=== PATIENT | male | born 1945 | race Caucasian/White ===

== ENCOUNTER → 2017-05-14 | Day surgery (SDC) | payer MEDICARE ==
[~2017-05-14] MED LIST: LIDOCAINE 1% PF 2 ML VIAL. ID; LIDOCAINE 2% 100 MG/5 ML SYRINGE.; MIDAZOLAM HCL/PF 2 MG/2 ML VIAL. IV; PROPOFOL 60 ML IV; fentaNYL PF VIAL 100 MCG/2 ML VIAL IV
[2017-05-14] MEDS: IV RINGERS,LACTATED 1000ML 1,000 ML IV (11:52)
== END | disposition home or self-care (01) ==
LOC: SURG 11:17
DX: D12.3 Benign neoplasm of transverse colon (principal); K63.5 Polyp of colon; K57.30 Diverticulosis of large intestine without perforation or abscess without bleeding; K64.8 Other hemorrhoids; K44.9 Diaphragmatic hernia without obstruction or gangrene; K29.50 Unspecified chronic gastritis without bleeding; I10 Essential (primary) hypertension; Z83.3 Family history of diabetes mellitus; Z80.3 Family history of malignant neoplasm of breast; Z98.890 Other specified postprocedural states; Z79.899 Other long term (current) drug therapy
CPT/HCPCS: 45385; 88305; J2704

== ENCOUNTER 2018-07-30 08:09 | Outpatient (CLI) | payer MEDICARE ==
[~2018-07-30] VITALS: Ht 172.7 cm; Wt 114.3 kg
[2018-07-30] VITALS (8 sets, daily range): BP systolic 140–160; BP diastolic 76–90
[~2018-07-30 08:09] MED LIST changes: +AMLO5TAB10 PO; +ESOM40CA PO; +FINA5TAB4 PO; -LIDOCAINE 1% PF 2 ML VIAL. ID; -LIDOCAINE 2% 100 MG/5 ML SYRINGE.; +LOSA1TAB25 PO; -MIDAZOLAM HCL/PF 2 MG/2 ML VIAL. IV; +PRAV40TA2 PO; -PROPOFOL 60 ML IV; -fentaNYL PF VIAL 100 MCG/2 ML VIAL IV
[2018-07-30] MEDS ORDERED: FERR325T14 PO (08:26)
[2018-07-30] MEDS ORDERED: LOSA1TAB22 PO (08:26)
[2018-07-30] MEDS ORDERED: MULT1TAB52 PO (08:26)
[2018-07-30] MEDS ORDERED: ASPI81TA50 PO (08:26)
[2018-07-30] MEDS ORDERED: CYAN25002 SL (08:26)
[2018-07-30 08:51] LABS: BASO # 0.1 x10^3/uL (0.0-0.2); BASO % 1 % (0-3); EOS # 0.4 x10^3/uL (0.0-0.7); EOS % 3 % (0-3); HEMATOCRIT 45.1 % (39.0-53.0); HEMOGLOBIN 15.3 g/dL (13.0-17.5); LYMPH # 1.4 x10^3/uL (1.0-4.8); LYMPH % 10 % (24-48); MEAN CORPUSCULAR HEMOGLOBIN 29 pg (25-35); MEAN CORPUSCULAR HGB CONC 34 g/dL (31-37); MEAN CORPUSCULAR VOLUME 85 fL (79-100); MONO # 0.9 x10^3/uL (0.0-1.1); MONO % 7 % (0-9); NEUT # 10.8 x10^3uL (1.8-7.7); NEUT % 79 % (31-73); PLATELET COUNT 577 x10^3/uL (140-400); RED CELL DISTRIBUTION WIDTH 15.5 % (11.5-14.5); WHITE BLOOD COUNT 13.6 x10^3/uL (4.0-11.0)
[2018-07-30 09:00] LABS: PROTHROMBIN TIME PATIENT 14.8 SEC (11.7-14.0)
[2018-07-30] MEDS ORDERED: LIDOCAINE WITH 8.4% SOD BICARB 3 ML DISP.SYRIN. ONE (10:10)
[2018-07-30] MEDS ORDERED: NALOXONE 0.4 MG/ML VIAL. ONE (10:59)
[2018-07-30] MEDS ORDERED: fentaNYL PF VIAL 100 MCG/2 ML VIAL ONE (10:59)
[2018-07-30] MEDS ORDERED: MIDAZOLAM HCL/PF 2 MG/2 ML VIAL. ONE (10:59)
[2018-07-30] MEDS ORDERED: FLUMAZENIL 0.5 MG/5 ML VIAL. IV ONE (10:59)
[2018-07-30] MEDS ORDERED: LIDOCAINE WITH 8.4% SOD BICARB 3 ML DISP.SYRIN. IJ ONE (11:15)
[2018-07-30] MEDS ORDERED: fentaNYL PF VIAL 100 MCG/2 ML VIAL IV ONE (11:15)
[2018-07-30] MEDS ORDERED: MIDAZOLAM HCL/PF 2 MG/2 ML VIAL. IV ONE (11:15)
--- NOTE | 2018-07-30 12:25 | NUR ---
Discharge Note: JACOB WALL Discharge instructions and discharge home medications reviewed with Patient and a copy given. All questions have been answered and understanding verbalized. The following instructions and handouts were given: adult moderate sedation and post care for bone marrow biopsy Discontinued lines and drains: Peripheral IV intact. Patient discharged to Home or Self Care withSpousevia Wheelchair
--- NOTE | 2018-07-30 14:37 | RAD ---
CT-guided bone marrow biopsy. 07/30/2018 2:34 PM Indication: THROMBOCYTOSIS Discussion: The risks and benefits of the procedure, including but not limited to, bleeding and infection were discussed patient. Informed consent was obtained. The patient was brought to the CT scanner and placed in the prone position. A timeout procedure was performed. Integration Aide CT imaging of the pelvis demonstrated left ilium amenable to bone marrow biopsy. The overlying soft tissues were prepped and draped using maximum sterile barrier technique. 1% lidocaine without epinephrine was administered for local anesthesia. Under intermittent CT guidance, an OncControl needle was advanced into the bone marrow of the left iliac crest. 2 Aspirates and 1 core biopsy samples were obtained. Samples were delivered to pathology was present at the time of procedure. The needle was removed and manual pressure held to achieve hemostasis. No immediate complications were identified. The procedure was performed under conscious sedation including continuous cardiopulmonary monitoring via dedicated sedation nurse. Sedation time: 20 minutes Impression: Successful CT-guided bone marrow biopsy of the left iliac crest . PQRS Compliance Statement: One or more of the following individualized dose reduction techniques were utilized for this examination: 1. Automated exposure control 2. Adjustment of the mA and/or kV according to patient size 3. Use of iterative reconstruction technique
--- NOTE | 2018-08-06 09:07 | PATHOLOGY ---
[facility] Accession Number: [id number] . 01 Material submitted: . PART A: bone - BONE MARROW BIOPSY PART B: bone - BONE MARROW CLOT PART C: bone - BONE MARROW APIRATE SLIDES PART D: bone - PERIPHERAL BLOOD SMEAR PART E: bone - BONE MARROW FLOW . 01 Clinical history: . Thrombocytosis . 02 Diagnosis: Peripheral smear: - Moderate thrombocytosis. - Mild neutrophilic leukocytosis. . Bone marrow, aspirate smears, clot section, and core biopsy: - Mild to moderately hypercellular marrow showing panhyperplasia, no significant dyspoiesis, increased large and giant mature megakaryocytes, and decreased iron stores - findings are compatible with a chronic myeloproliferative disorder. See comment. (JPM:alf; 08/04/2018) R/08/06/2018 . 02 Comment: The peripheral smear shows a moderate thrombocytosis with several large platelets, and a mild neutrophilic leukocytosis. The bone marrow is mild to moderately hypercellular and shows panhyperplasia, no significant dyspoiesis, increased megakaryocytes with large and giant mature megakaryocytes, and decreased iron stores. The findings are compatible with a chronic myeloproliferative disorder. 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 The differential diagnosis includes Essential thrombocythemia and an early prodromal phase of Polycythemia vera. Diagnostic criteria of Polcythemia vera are not met despite an apparent trial of iron therapy. 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 Correlate clinically. (JPM:alf; 08/04/2018) . Special stains performed: Retic stain on A1 Iron stain on B1 Aspirate smear C1 . 02 Electronically signed: . Nathanael Loza MD, Pathologist NPI- [id number] . 01 Gross description: . A. Received in formalin labeled "Harry Hester, bone marrow," and additionally labeled on the requisition as "BM BX," are 2 needle cores of deluna bone measuring 0.6 and 1.0 cm in length and 0.2 cm each in diameter. The specimen is submitted entirely in cassette A1, following decalcification. . B. Received in formalin labeled "Harry Hester, BM ASP-clot," is an aggregate of dark deluna blood clot measuring 0.9 x 0.4 x 0.1 cm. The specimen is filtered and entirely submitted in cassette B1. (TSD; 07/30/2018) TOB/TOB . 02 Microscopic: . Laboratory Data: The WBC count is 13.6 K/CMM, and the automated WBC differential reveals 79% neutrophils, 10% lymphs, 7% monos, 3% eos, and 1% baso. The RBC count is 5.30 M/CMM, hemoglobin 45.1%, MCV 85 FL, MCH 29 PG, MCHC 34 G/DL, and the RDW is 15.5%. The platelet count is 577 K/CMM. Additional laboratory studies are obtained from Dr. Membreno' office. The serum iron is 76 UG/DL, TIBC 374 UG/DL, saturation 20%, and ferritin 115 NG/ML. Erythropoietin level is 13.2 MU/ML. The vitamin B12 is 2305 PG/ML. 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 FISH analysis performed on peripheral blood is negative for detection of BCR-ABL1 rearrangement. . Peripheral Smear: The peripheral smear is reviewed. The WBC count is mildly increased. There is a mild absolute neutrophilia. The WBC differential reveals a predominance of segmented neutrophils, with small populations of lymphocytes and monocytes and a few eosinophils and occasional basophils noted. Neutrophils do not show dysplastic changes. There is an occasional circulating myelocyte. There is no significant left shift with myelocyte bulge. There are no circulating blasts. There is no leukoerythroblastic reaction. The lymphocyte population consists predominantly of small lymphocytes. Red blood cells predominantly appear normochromic and normocytic. Red blood cells show slight anisocytosis and no significant poikilocytosis. Platelets are moderately increased. Platelets predominantly appear normal in morphology, although several large platelets and a rare giant platelet are noted. . Aspirate Smears: Two Ortiz's-stained and one iron-stained aspirate smears are examined. The smears contain multiple cellular marrow particles which are obviously hypercellular for age. The M/E ratio is approximately 2:1. Erythroid maturation appears normoblastic. There are no megaloblastic or overt dysplastic changes. Granulopoiesis qualitatively appears normal. There is no significant left shift or dysplastic changes. There is no increase of blasts. Megakaryocytes are increased and are focally clustered. The megakaryocytes are of variable ploidy. There are large and occasional giant megakaryocytes having abundant mature cytoplasm and deeply lobulated and hypersegmented nuclei. There are focal platelet clumps within the smear as well. Plasma cells are not increased. There is no increase of lymphocytes. There are no cells foreign to the marrow. The iron stain shows focally present but overall decreased iron stores. There are no ringed sideroblasts. . Bone Marrow Biopsy and Clot Section: Sections of the bone marrow biopsy reveal a segment of bone marrow which ranges between 50% and 70-80% cellular. The clot section contains multiple marrow particles which range between 60% and 80% cellular. There appears to be a panhyperplasia. There is a good admixture of erythroid and granulocytic precursors, which are present in varying stages of maturation. There does not appear to be a significant neutrophilic left shift. There is no increase of blasts. Megakaryocytes are increased and are focally loosely clustered. The megakaryocytes are of variable ploidy. There are large and giant megakaryocytes present having abundant mature cytoplasm and deeply lobulated and hypersegmented nuclei. There is no increase of plasma cells. There are no abnormal lymphoid aggregates, granulomas, or cells foreign to the marrow. A reticulin stain obtained on the biopsy shows a patchy mild increase of reticulin fibers. An iron stain obtained on the clot section show nearly absent iron stores. No ringed sideroblasts are identified. . Special Studies: Bone marrow submitted for flow cytometric analysis has a viability of 99.3%. Granulocytes comprise 88.0% of total cells and show phenotypic evidence of maturation. Monocytes comprise 1.6% of total cells. CD45 dim, CD34 positive cells comprise 0.6% of total cells. Plasma cells are not detected. Lymphocytes comprise 7.9% of total cells. T-cells comprise 87% of lymphoid cells and show a CD4/CD8 ratio of 3.8. NK-cells comprise 4% of lymphoid cells. Mature B-cells comprise 6% of lymphoid cells and are polyclonal with a kappa:lambda ratio of 1.7. . (JPM:alf; 08/04/2018) . 02 Pathologist provided ICD-10: D47.3, D72.829, D75.89 . 02 CPT . 062783, 965756, 937013, 199692, [id number], [id number], [id number] Specimen Comment: A courtesy copy of this report has been sent to Specimen Comment: [phone], . Specimen Comment: Report sent to / DR MEMBRENO Performed at: 01 [facility] [address] [place] [address] [address], [place] [id number] MD Weston Jurado MD Phone: [phone] Performed at: [address] [facility] [address] [place], [place] [id number] MD Nathanael Loza MD Phone: [phone]
== END 2018-07-30 12:35 | disposition home or self-care (01) ==
LOC: INTRAD 08:09
PROVIDERS: ATTEND Internal Medicine Hematology & Oncology
DX: D47.3 Essential (hemorrhagic) thrombocythemia (principal); D72.828 Other elevated white blood cell count; Z88.8 Allergy status to other drugs, medicaments and biological substances
CPT/HCPCS: 36415; 38222; 77012; 85025; 85610; 85730; 88184; 88185; 88237; 99152; J2250; J3010; 88305; 88311; 88313